=== PATIENT | female | born 1930 | race Caucasian/White ===

== ENCOUNTER 2016-07-08 11:55 | Emergency (ER) | payer MEDICARE, BC ==
[2016-07-08 12:17] VITALS: BP 151/80
[2016-07-08] MEDS ORDERED: ACETAMINOPHEN 325 MG TABLET PO ONE (15:23)
--- NOTE | 2016-07-08 15:23 | ERNOTE ---
Date of Service: 07/08/16 Time Seen by Provider: 07/08/16 15:14 Stated Complaint: UPPER RESPITORY. Presenting Symptoms:: cough, sore throat, runny nose Source: patient, RN notes reviewed, past records Exam Limitations: no limitations Immunizations: IMMUNIZATION HX Immunizations Up to Date Yes History of Influenza Vaccine Yes Hx Pneumococcal Vaccination Yes Allergies/Adverse Reactions: Allergies Sulfa (Sulfonamide Antibiotics) Allergy (Intermediate, Verified 06/30/16 10:21) Hives fish oil Allergy (Intermediate, Uncoded 02/19/16 09:45) Hives Home Medications: HOME MEDICATIONS Bioflav,Lemon/Vit Bcomp,C [Lipoflavovit Caplet] 1 each PO DAILY 05/23/13 [Last Taken Unknown] Calcium Carbonate [Calcium] 500 mg PO DAILY 05/23/13 [Last Taken Unknown] Cyanocobalamin [Vitamin B-12] 1,000 mcg PO DAILY 05/23/13 [Last Taken Unknown] Levothyroxine Sodium [Synthroid] 112 mcg PO DAILY 05/23/13 [Last Taken Unknown] Omeprazole [Prilosec] 40 mg PO DAILY 05/23/13 [Last Taken Unknown] Sennosides [Senna Laxative] 8.6 mg PO DAILY 05/23/13 [Last Taken Unknown] Simvastatin 40 mg PO DAILY 05/23/13 [Last Taken Unknown] Vit A/Vit C/Vit E/Zinc/Copper [Preservision Areds Tablet] 2 each PO DAILY [Last Taken Unknown] Polyethylene Glycol 3350 [Miralax] 17 gm PO DAILY 12/14/15 [Last Taken Unknown] Warfarin Sodium [Coumadin] 5 mg PO DAILY #30 tablet 12/14/15 [Last Taken Unknown ] - History of Present Ilness Narrative: Glenis is a 86 year old female who presents to the ED by private vehicle for upper respiratory symptoms that began on 07/05/16. She reports a runny nose, sore throat and cough. She believes she has had a fever but has not checked. She denies headaches or body aches. She reports that she is starting chemotherapy later this week. She has been taking OTC cough/cold meds. Date (Duration): 07/05/16 Frequency/Possible Cause: Reports: illness exposure Associated Symptoms: Reports: cough, nasal congestion, nasal drainage, sore throat. Denies: chest pain/soreness, shortness of breath, wheezing, facial pain , dizziness, lightheadedness, earache, headache, muscle aches Review of Systems - Review of Systems Constitutional: Present: See HPI EYE: Present: no symptoms reported ENT: Present: See HPI Respiratory: Present: See HPI Cardiology: Present: no symptoms reported Gastrointestinal/Abdominal: Present: See HPI Genitourinary: Present: no symptoms reported Musculoskeletal: Present: See HPI Skin: Present: no symptoms reported Neurological: Present: See HPI Endocrine: Present: no symptoms reported Hematologic/Lymphatic: Present: no symptoms reported Psych: Present: no symptoms reported - Patient's Past Medical History Patient History - Medical: GERD, Renal Disease, UTI'S Patient History - Cardiac/Respiratory: Deep Vein Thrombosis, Pulmonary Embolism Patient History - Cancer: Colon, Other - Fallopian tube Patient History - Surgical Procedures: Cancer Surgery, Cataracts, Colonoscopy, Hysterectomy, Total Knee Replacement, T & A LMP (females 10-50): Menopausal - Family History Mother Family History - Medical: Family History - Cardiac/Respiratory: No pertinent hx Father Family History - Medical: Family History - Cardiac/Respiratory: CVA/Stroke, Myocardial Infarction - Social History Living Situations: home Smoking Status: Former smoker Have you smoked in the past 12 months: No Do you dip or chew tobacco: No Patient requests Smoking Cessation Consult: No Initiate information on Smoking Cessation: No Alcohol Use: none Drug Use: none Physical Exam - Physical Exam General Appearance: Present: wd/wn, alert, no apparent distress, other - noted to be uncomfortable Eye Exam: Normal inspection: bilateral Ears, Nose, Throat: Present: hearing grossly normal, nasal congestion, pharyngeal erythema. Absent: abnormal TM (R), abnormal TM (L), sinus pain/ drainage Neck: Present: normal inspection, nontender, supple Respiratory: Present: no respiratory distress, normal breath sounds, no accessory muscle use, lungs clear Cardiovascular/Chest: Present: regular rate, rhythm, no murmur Neurological Exam: Present: alert, oriented, normal mood/affect Skin Exam: Present: normal color, warm/dry ED Progress - Results and Orders Patient's Lab Results:: I have reviewed the patient's lab results. - Vital Signs Patient's Vital Signs:: I have reviewed the patient's vital signs. Vital Signs: Vital Signs 07/08/16 12:13 Temperature 35.9 C L Pulse Rate 82 Respiratory 14 Rate Blood Pressure 151/80 O2 Sat by Pulse 99 Oximetry - X-Ray X-Ray #1 X-Ray: chest Interpretation: Interp. by me X-ray Comments: No acute cardiopulmonary process noted - Progress/Reassessment Chief Complaint: Upper Respiratory Symptoms Progress:: Unchanged Departure - Departure Clinical Impression: Upper respiratory infection, viral Disposition: Home Follow Up Needed Condition: Fair Instructions: Upper Respiratory Infection, Adult, [id number] Additional Instructions: Drink plenty of water and rest Return or see your doctor if symptoms worsen Continue your routine medications Stop the cough/cold medication - OK to take Tylenol for pain/fever
[2016-07-08] MEDS ORDERED: ACETAMINOPHEN 325 MG TABLET ONE (15:35)
[2016-07-08 15:39] LABS: Hematocrit 39.8 % (37.0-47.0); Hemoglobin 12.3 gm/dL (12.5-16.0); Mean Cell Volume 87.3 fl (78-100); Mean Corpuscular Hgb Conc 30.9 g/dl (32-36); Mean Platelet Volume 10.7 fl (6.0-9.5); Neutrophil # 5.2 K/mm3 (1.3-6.0); Neutrophil % 76.4 % (42-75.0); Platelet Count 192 K/mm3 (150-450); Red Blood Count 4.56 M/mm3 (4.2-5.4); Red Cell Distribution Width 14.4 % (11.5-14.0); White Blood Count 6.8 K/mm3 (4.0-10.5)
[2016-07-08 15:50] LABS: Prothrombin Time (Patient) 21.8 Seconds (9.4-11.4)
[2016-07-08 15:51] LABS: INR 2.1 INR (0.90-1.10)
[2016-07-08 15:53] LABS: Albumin * 3.5 gm/dl (3.4-5.0); Anion Gap 16.1 mmol/L (6.8-13.8); BUN/Creatinine Ratio 15.1 (9.0-21.6); Bilirubin, Total 0.7 mg/dL (0.0-1.1); Ca. Corrected For Albumin 9.1 mg/dL (8.4-10.2); Carbon Dioxide 24.5 mmol/L (24-32.6); Potassium 4.6 mmol/L (3.4-4.6); Total Protein 7.5 gm/dL (6.2-8.2)
== END 2016-07-08 18:10 | disposition home or self-care (01) ==
LOC: ER 11:55
DX: J06.9 Acute upper respiratory infection, unspecified (principal); Z87.891 Personal history of nicotine dependence; Z78.0 Asymptomatic menopausal state; Z90.710 Acquired absence of both cervix and uterus; Z85.038 Personal history of other malignant neoplasm of large intestine; Z85.89 Personal history of malignant neoplasm of other organs and systems

== ENCOUNTER 2016-10-27 14:08 | Emergency (ER) | payer MEDICARE, BC ==
--- OUTSIDE RECORDS SUMMARY | 2016-10-27 14:54 | XMS REPORT | Continuity of Care Document ---
:1930 Author Organization [facility] ([facility]) Address [address] [place] [address] Phone [phone] Care Team Providers Name Role Phone Rg Mccormick Primary Care Provider [phone] Source Comments This disclosure is being made pursuant to the Care Everywhere program, applicable federal and state laws, and may not contain all informaitonavailable regarding this patient.[facility] ([facility]) Active Allergies and Adverse Reactions Allergen Noted Date Severity Reactions Comments Fish Oil 06/15/2010 Rash Sulfa (Sulfonamide Antibiotics) 06/15/2010 Rash Current Medications Prescription Sig. Disp. Refills Start Date End Date Status BIOFLAV,LEMON/VIT Take 1 Tab by Active BCOMP&C (LIPO-FLAVONOID mouth daily. PLUS PO) VIT C/DL-E Take 1 Tab by Active AC/LUT/COPPER/ZNOX mouth 2 times (PRESERVISION PO) daily. simvastatin (ZOCOR) 40 Take 40 mg by Active mg tablet mouth every evening. CA CITRATE/MGOX/VIT Take by mouth Active D3/B6/MIN (CITRACAL PLUS daily. PO) cyanocobalamin (VITAMIN Take 1,000 mcg by Active B-12) 1,000 mcg tablet mouth daily. omeprazole 40 mg enteric Take 40 mg by Active coated capsule mouth daily. polyethylene glycol 3350 Take 17 g by Active 17 gram packet mouth daily. hypromellose (GONIOVISC) 1 Drop 3 times Active 2.5 % ophthalmic daily as needed. solution docusate 100 mg capsule Take 1 Cap by 60 Cap 3 08/25/2014 Active mouth 2 times daily. Indications: CONSTIPATION ibuprofen 400 mg tablet Take 1 Tab by 90 Tab 3 08/25/2014 Active mouth every 6 hours as needed. Indications: PAIN acetaminophen 325 mg Take 2 Tabs by 90 Tab 3 08/25/2014 Active tablet mouth every 4 hours as needed. Indications: PAIN Walker misc 1 Each as needed. 1 Each 0 08/25/2014 Active Indications: generalized weakness, assistance with ambulation. warfarin PO Take 7 mg by Active mouth daily. levothyroxine 125 mcg Take 1 tablet 30 tablet 11 07/19/2016 Active tablet (125 mcg total) by mouth every morning before breakfast. Transparent Dressings 1 application by 50 Each 07/18/2016 Active (TEGADERM) 4 X 4 3/4 " Apply externally bndg route daily. Gauze Bandage 2 X 2 " 1 application by 200 Each 07/18/2016 Active spge Apply externally route daily. ondansetron 8 mg tablet Take 1 tablet (8 12 tablet 08/10/2016 Active mg total) by mouth every 8 hours as needed. PROchlorPERAZINE 10 mg Take 1 tablet (10 30 tablet 08/10/2016 Active tablet mg total) by mouth every 6 hours as needed. lidocaine, viscous 2 % 1 tsp swish and 100 mL 11 10/05/2016 Active solution spit q 2 hours prn mouth sores. Mix with equal parts Maalox and liquid Benadryl methylPREDNISolone 4 mg Take as directed 21 tablet 0 10/25/2016 Active tablet pack according to package instructions. Active Problems Problem Noted Date Chemotherapy management, encounter for 09/13/2016 Evaluated for clinical trial enrollment [id number], unable to enroll elevated 08/10 creat. 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 IV carboplatin with weekly Taxol, cycle #1 given 07/21/10. Macular degeneration 07/25/2010 Diverticulitis 06/15/2010 Hypothyroid 06/15/2010 Hyperlipidemia 06/15/2010 Spastic colon 06/15/2010 Overview: Outside diagnosis Resolved Problems Problem Noted Date Resolved Date Routine cancer follow-up visit 06/27/2016 08/10/2016 FUO (fever of unknown origin) 08/24/2014 01/24/2016 Postoperative nausea 08/23/2014 01/24/2016 Obesity, Class II, BMI 35-39.9 08/23/2014 08/10/2016 Hypophosphatemia 08/23/2014 01/24/2016 Acute blood loss anemia 08/23/2014 08/10/2016 Pleural effusion 06/16/2010 06/14/2015 Rash 06/15/2010 06/14/2015 Most Recent Encounters Date Type Specialty Providers Description 01/18/2017 Hospital Radiology Encounter 10/25/2016 Telephone Cancer Center Ivon Vaughan, Dx: Palmar plantar RN erythrodysesthesia (Primary Dx) 10/22/2016 Telephone Radiology Daniella Agustin Chief Comp: Follow-up Kelly RN 10/19/2016 Telephone Radiology Ashley, Chief Comp: Advice Only MD Maury 10/16/2016 Telephone Radiology Daniella Agustin Chief Comp: Patient L, RN Concern 10/15/2016 Surgery Radiology Anamaria Colunga, IR NEPHROSTOMY TUBE MD CHECK & CHANGE 10/05/2016 [facility] Jacob Edouard Dx: Metastatic Encounter Center MD [place] adenocarcinoma to spleen 10/05/2016 Office Visit OBG Reproductive Jacob Edouard Dx: Cancer of both P, fallopian tubes (Primary Clinic, Light Adjuster Onc Dx) Advanced Practice Provider 10/05/2016 Pharmacy Visit 10/03/2016 Telephone Cancer Center Delores Villatoro, Chief Comp: Results RN 09/28/2016 Office Visit OB Jacob Harley Chief Comp: Patient PMD Reported Reason For Clinic, Light Adjuster Onc Visit Advanced Practice Provider 09/07/2016 [facility] Jacob Edouard Dx: Metastatic Encounter Center MD [place] adenocarcinoma to spleen 09/07/2016 Office Visit OB Jacob Harley Dx: Cancer of both P, MD fallopian tubes (Primary Clinic, Light Adjuster Onc Dx) Advanced Practice Provider 08/10/2016 [facility] Jacob Edouard Dx: Metastatic Encounter Center MD [place] adenocarcinoma to spleen 08/06/2016 Hospital Radiology Subj: Upcoming Appt Encounter Reminder 08/06/2016 Office Visit Pathology Cynthia Forbes Dx: Elevated serum K, RESULTS ENGINEER creatinine Lab Services, Pfp 08/06/2016 Office Visit OBG Jacob Harley Dx: Cancer of both MD [place] fallopian tubes (Primary Clinic, Light Adjuster Onc Dx) Advanced Practice Provider Immunizations Name Dates Previously Given Next Due Influenza, unspecified 04/07/2016,04/19/2014 Pneumococcal Conjugate, PCV13 (Prevnar 13) 09/07/2016 Pneumococcal Polysaccharide, PPSV23 (Pneumovax 23) 06/17/2010 Social History Tobacco Use Types Packs/Day Years Used Date Never Smoker Smokeless Tobacco: Never Used Alcohol Use Drinks/Week oz/Week Comments No Last Filed Vital Signs Vital Sign Reading Time Taken Blood Pressure 123/60 10/15/2016 10:58 AM CDT Pulse 62 10/05/2016 10:39 AM CDT Temperature 36.5 C (97.7 F) 10/15/2016 10:30 AM CDT Respiratory Rate 16 10/05/2016 10:39 AM CDT Height 1.651 m (5' 5") 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 Weight 85.7 kg (188 lb 15 oz) 10/05/2016 9:34 AM CDT Body Mass Index 31.44 10/05/2016 9:34 AM CDT Oxygen Saturation 100% 10/15/2016 10:58 AM CDT Plan of Care Date Type Specialty Providers Description 11/02/2016 Appointment OBG Jacob Harley MD [address] [place] [address] [phone] (Fax) Chief Comp: Clinic, Light Adjuster Onc Advanced Practice Provider Patient Reported Reason For Visit 11/02/2016 Hospital Encounter Cancer Infusion Jacob Edouard, Chief Comp: Dylon COMER Patient Reported [address] [place] [address] [phone] (Fax) 01/18/2017 Surgery Radiology Radiologist, Rad IR NEPHROSTOMY Invasive TUBE CHECK & [address] [place] [address] [phone] (Fax) 06/26/2017 Appointment Heart and Vascular Denzel Carreno Chief Comp: MD Lili Patient Reported [address] [place] [address] [phone] (Fax) Health Maintenance Due Date Last Done Comments Hepatitis B Vaccine (1 of 3 1930 - Primary Series) Tdap Vaccine 1942 Lipid Disorder Screening 1949 Td Vaccine 1949 Colonoscopy 03/03/1981 Zoster Vaccine 1991 Osteoporosis Screening (DXA 1996 Bone Density) Influenza Vaccine: Seasonal Addressed 04/12/2016 (Completed Overridden with the outside this hospital intention of not or clinic), 04/07/2016, completing the topic 04/19/2014 Pneumococcal Vaccine Completed 09/07/2016, 06/17/2010 Results from Last 3 Months IR NEPHROSTOMY TUBE CHECK& CHANGE (10/15/2016 10:26 AM) Impressions IMPRESSION: Successful exchange of existing left external nephrostomy catheters using a 10 F, 35 cm locking pigtail catheter. Nephrostogram showed distal ureteric obstruction. PLAN: Patient to return to IR in 3 months for the same check/change. No flushing. Narrative PROCEDURE: Exchange of existing left external PCN catheter. CLINICAL INDICATIONS:Fallopian tube cancer with ureteral obstruction, status post PCN placement on 07/17/2016. Follow-up exam. Patient complains of minimal leakage. ACCESS:Existing left external PCN catheter. CONTRAST: 40 ml Isovue 370 ANESTHESIA:1% Local lidocaine MEDICATIONS:1 mg Versed IV, 50 mcg Fentanyl IV, 1 g Rocephin IV. PHYSICIANS: Dr. Colunga MASSOTHERAPIST: Dr. Ramirez COMPLICATIONS:None immediate BLOOD LOSS:Minimal FLUORO TIME:1.6 min FLUORO DOSE:15 mGy SEDATION START TIME: 0947 AM SEDATION STOP TIME: 1006 AM TECHNIQUE/FINDINGS:The patient was identified.After the risks and benefits of the procedure were discussed with the Patient, an informed written consent was obtained.The patient was then brought back to interventional suite and placed prone on the table.A time out was performed.The patient was then prepped and draped in the normal sterile fashion.The existing left external nephrostomy tube was prepped in the standard sterile fashion. A vessel liner film was performed to document the location of the existing catheter. A preprocedural nephrostogram was performed. Subsequently, the pericatheter skin was anesthetized using 1 % lidocaine. The catheter was unlocked and unsecured and was exchanged over a Bentson guidewire with another 10 F, 35 cm locking pigtail catheter. The catheter was locked and the pigtail loop was adjusted to lie in the renal pelvis. Post procedure nephrostogram was performed documenting adequate catheter placement and to rule out any immediate complications. Catheter was locked and sutured to the skin using 2.0 Prolene. Nephrostogram findings : Obstruction of the distal ureter in the pelvis. Otherwise, unremarkable collecting system and proximal and mid ureter. The patient tolerated the procedure well. There were no complications. Dr. Colunga performed the entire procedure. Procedure Note Wero, Incoming Imaging Results - Tue Oct 16, 2016 8:22 AM CDT PROCEDURE: Exchange of existing left external PCN catheter. CLINICAL INDICATIONS: Fallopian tube cancer with ureteral obstruction, status post PCN placement on 07/17/2016. Follow-up exam. Patient complains of minimal leakage. ACCESS: Existing left external PCN catheter. CONTRAST: 40 ml Isovue 370 ANESTHESIA: 1% Local lidocaine MEDICATIONS: 1 mg Versed IV, 50 mcg Fentanyl IV, 1 g Rocephin IV. PHYSICIANS: Dr. Colunga MASSOTHERAPIST: Dr. Ramirez COMPLICATIONS: None immediate BLOOD LOSS: Minimal FLUORO TIME: 1.6 min FLUORO DOSE: 15 mGy SEDATION START TIME: 0947 AM SEDATION STOP TIME: 1006 AM TECHNIQUE/FINDINGS: The patient was identified. After the risks and benefits of the procedure were discussed with the Patient, an informed written consent was obtained. The patient was then brought back to interventional suite and placed prone on the table. A time out was performed. The patient was then prepped and draped in the normal sterile fashion. The existing left external nephrostomy tube was prepped in the standard sterile fashion. A vessel liner film was performed to document the location of the existing catheter. A preprocedural nephrostogram was performed. Subsequently, the pericatheter skin was anesthetized using 1 % lidocaine. The catheter was unlocked and unsecured and was exchanged over a Bentson guidewire with another 10 F, 35 cm locking pigtail catheter. The catheter was locked and the pigtail loop was adjusted to lie in the renal pelvis. Post procedure nephrostogram was performed documenting adequate catheter placement and to rule out any immediate complications. Catheter was locked and sutured to the skin using 2.0 Prolene. Nephrostogram findings : Obstruction of the distal ureter in the pelvis. Otherwise, unremarkable collecting system and proximal and mid ureter. The patient tolerated the procedure well. There were no complications. Dr. Colunga performed the entire procedure. IMPRESSION IMPRESSION: Successful exchange of existing left external nephrostomy catheters using a 10 F, 35 cm locking pigtail catheter. Nephrostogram showed distal ureteric obstruction. PLAN: Patient to return to IR in 3 months for the same check/change. No flushing. CANCER ANTIGEN 125 (10/05/2016 11:08 AM)Only the most recent of3 resultswithin the time period is included. Component Value Range CA-125 (Cancer Antigen 125) 383(H) <=34 U/mL Specimen Blood ECG - EKG 12 LEAD (08/06/2016 12:57 PM) Component Value Range ECG SEVERITY - NORMAL ECG - VENT. RATE 69 bpm RR 870 ms P-R INTERVAL 132 ms QRSD INTERVAL 76 ms QT INTERVAL 384 ms QTC INTERVAL 412 ms P AXIS 51 degrees QRS AXIS -17 degrees T WAVE AXIS 53 degrees REPORT SINUS RHYTHM [Remains] NO SIGNIFICANT CHANGE Interpreting Physician: ROBLES YUSUF MD DIFFERENTIAL (08/06/2016 12:33 PM) Component Value Range % Neutrophils-Auto Diff 65.8 % Neutrophils-Auto Diff 3620 6357-0886 /MM3 % Lymphocytes-Auto Diff 20.5 % Lymphocytes-Auto Diff 7558 742-2230 /MM3 % Monocytes-Auto Diff 10.3 % Monocytes-Auto Diff 570 130-860 /MM3 % Eosinophils-Auto Diff 2.5 % Eosinophils-Auto Diff 140 40-390 /MM3 % Basophils 0.5 % Basophils-Auto Diff 30 10-136 /MM3 % Immature Granulocytes-Auto Diff 0.4 % Immature Granulocytes-Auto Diff 20 /MM3 Specimen Whole Blood CBC (COMPLETE BLOOD COUNT) (08/06/2016 12:33 PM) Component Value Range WBC Count 5.5 3.7-10.5 K/MM3 RBC Count 4.24 4.00-5.20 M/MM3 Hemoglobin 11.5(L) 11.9-15.5 g/dL Hematocrit 36 35-47 % MCV (Mean Corpuscular Volume) 86 82-99 FL MCH (Mean Corpuscular Hemoglobin) 27 25-35 PG MCHC (Mean Corpuscular Hemoglobin Concentration) 32 32-36 % Platelet Count 200 150-400 K/MM3 MPV (Mean Platelet Volume) 11.5 9.4-12.3 FL RBC Dist Width-STD 47.0(H) 36.4-46.3 FL RBC Distrib Width 15.1(H) 9.0-14.5 % Nucleated RBC 0 /100 WBC Specimen Whole Blood PROTEIN-URINE,RANDOM (08/06/2016 12:33 PM) Component Value Range Total Protein, Urine, Random 364 mg/dL Protein/Creatinine Ratio 3.64(H) <=0.20 Specimen Urine CREATININE-URINE, RANDOM (08/06/2016 12:33 PM) Component Value Range Creatinine, Urine, Random 100.1 mg/dL Specimen Urine CBC WITH DIFFERENTIAL (08/06/2016 12:33 PM) Specimen Whole Blood Narrative The following orders were created for panel order CBC WITH DIFFERENTIAL. Procedure Abnormality Status --------- ------ CBC (COMPLETE BLOOD COUNT)[[id number]] AbnormalFinal result DIFFERENTIAL[[id number]] Final result Please view results for these tests on the individual orders. THYROID STIMULATING HORMONE (08/06/2016 12:33 PM) Component Value Range TSH 1.13 0.27-4.20 IU/mL Specimen Blood TOTAL PROTEIN (08/06/2016 12:33 PM) Component Value Range Total Protein 6.8 6.0-8.0 g/dL Specimen Blood BILIRUBIN, TOTAL (08/06/2016 12:33 PM) Component Value Range Bilirubin Total 0.4 <=1.2 mg/dL Specimen Blood ALKALINE PHOSPHATASE (08/06/2016 12:33 PM) Component Value Range ALP 72 35-104 U/L Specimen Blood ALANINE AMINOTRANSFERASE (08/06/2016 12:33 PM) Component Value Range ALT 14Comment: 0-33 U/L The upper limit of normal for alanine aminotransferase (ALT) reference ranges for adults is controversial with some authorities recommending limit as low as 30 U/L for males and 19 U/L for females. Th ere is increased incidence of subclinical liver disease (e.g., early steatohepatitis) in patients with ALT values in the range of 31-41 U/L for males and 20-33 U/L for females. ALT values should alway s be interpreted in conjunction with clinical history, physical examination findings, and, if applicable, data from other diagnostic tests. Specimen Blood ASPARTATE AMINOTRANSFERASE (08/06/2016 12:33 PM) Component Value Range AST 21Comment: 0-32 U/L Adult reference ranges updated on 06/02/13 at 830am Specimen Blood CALCIUM (08/06/2016 12:33 PM) Component Value Range Calcium 8.9 8.5-10.5 mg/dL Specimen Blood ALBUMIN (08/06/2016 12:33 PM) Component Value Range Albumin 3.8 3.4-4.8 g/dL Specimen Blood GLUCOSE (08/06/2016 12:33 PM) Component Value Range Glucose 106(H)Comment: 65-99 mg/dL The Expert Committee on the Diagnosis and Classification of Diabetes has defined impaired fasting glucose as greater than or equal to 100 mg/dL but less than 126 mg/dL.(Diabetes Care 28 (Suppl 1)S41,2005) Specimen Blood CREATININE (08/06/2016 12:33 PM) Component Value Range Creatinine 1.1(H)Comment: 0.5-1.0 mg/dL Creatinine switched to enzymatic method on 11/14/2010.GFR equation switched to IDMS-traceable MDRD equation on 11/14/2010. Calculated GFR values are not valid in clinical settings where serum creatinine is changing. Calculated GFR 47(L) >60 mL/min/1.73 m2 Specimen Blood BLOOD UREA NITROGEN (08/06/2016 12:33 PM) Component Value Range BUN 20 10-20 mg/dL Specimen Blood CO2 (08/06/2016 12:33 PM) Component Value Range CO2 24 22-29 mEq/L Anion Gap 14 8-18 mEq/L Specimen Blood CHLORIDE (08/06/2016 12:33 PM) Component Value Range Chloride 101 95-107 mEq/L Specimen Blood POTASSIUM (08/06/2016 12:33 PM) Component Value Range Potassium 4.6 3.5-5.0 mEq/L Specimen Blood SODIUM (08/06/2016 12:33 PM) Component Value Range Sodium 139 135-145 mEq/L Specimen Blood
[2016-10-27 15:18] LABS: Hematocrit 29.1 % (37.0-47.0); Hemoglobin 9.1 gm/dL (12.5-16.0); Mean Cell Volume 87.1 fl (78-100); Mean Corpuscular Hemoglobin 27.2 pg (27-31); Mean Corpuscular Hgb Conc 31.3 g/dl (32-36); Mean Platelet Volume 10.8 fl (6.0-9.5); Neutrophil # 5.8 K/mm3 (1.3-6.0); Neutrophil % 85.6 % (42-75.0); Platelet Count 326 K/mm3 (150-450); Red Blood Count 3.34 M/mm3 (4.2-5.4); Red Cell Distribution Width 14.6 % (11.5-14.0); White Blood Count 6.8 K/mm3 (4.0-10.5)
[2016-10-27 15:31] LABS: Anion Gap 12.5 mmol/L (6.8-13.8); BUN/Creatinine Ratio 17.7 (9.0-21.6); Bilirubin, Total 0.4 mg/dL (0.0-1.1); Calcium * 8.9 mg/dL (7.9-10.9); Carbon Dioxide 27.7 mmol/L (24-32.6); Estimated Creat Clear 26.2; Potassium 4.2 mmol/L (3.4-4.6)
[2016-10-27 15:34] LABS: Prothrombin Time (Patient) 50.3 Seconds (9.4-11.4)
[2016-10-27 15:47] LABS: INR 4.84 INR (0.90-1.10)
[2016-10-27 15:48] LABS: Urine Appearance Cloudy; Urine Color Amber
[2016-10-27 15:52] LABS: Urine Bilirubin Negative (NEGATIVE); Urine Blood 250 /ul (NEGATIVE); Urine Ketone 5 mg/dL (NEGATIVE)
[2016-10-27 15:53] LABS: Urine Bacteria 1+; Urine Nitrite Positive (NEGATIVE); Urine Protein >=300 mg/dL (NEGATIVE); Urine RBC >50 /hpf (0-5); Urine Urobilinogen Normal (NORMAL); Urine WBC >50 /hpf (0-5); Urine pH 6.5 pH (5.0-7.0)
[2016-10-27 16:06] LABS: Urine Appearance Slightly Cloudy; Urine Bilirubin Negative (NEGATIVE); Urine Blood Negative /ul (NEGATIVE); Urine Color Yellow; Urine Ketone Negative (NEGATIVE); Urine Protein 30 mg/dL (NEGATIVE); Urine Urobilinogen Normal (NORMAL); Urine pH 5.5 pH (5.0-7.0)
[2016-10-27 16:07] LABS: Urine Bacteria 2+; Urine Nitrite Negative (NEGATIVE); Urine RBC None Seen /hpf (0-5)
[2016-10-27] MEDS ORDERED: KETOROLAC TROMETHAMINE 30 MG/ML VIAL IV ONE (16:51)
--- NOTE | 2016-10-27 16:53 | ERNOTE ---
Medical Problem HPI - Narrative Date of Service: 10/27/16 - General Chief Complaint: Fever Time Seen by Provider: 10/27/16 14:44 Source: patient, family Exam Limitations: no limitations - Immun/Allergies/Home Medications Immunizations: IMMUNIZATION HX Immunizations Up to Date Yes History of Influenza Vaccine Yes Hx Pneumococcal Vaccination Yes Allergies/Adverse Reactions: Allergies Sulfa (Sulfonamide Antibiotics) Allergy (Intermediate, Verified 06/30/16 10:21) Hives fish oil Allergy (Intermediate, Uncoded 02/19/16 09:45) Hives Home Medications: HOME MEDICATIONS Bioflav,Lemon/Vit Bcomp,C [Lipoflavovit Caplet] 1 each PO DAILY 05/23/13 [Last Taken Unknown] Cyanocobalamin [Vitamin B-12] 1,000 mcg PO DAILY 05/23/13 [Last Taken Unknown] Levothyroxine Sodium [Synthroid] 125 mcg PO DAILY 05/23/13 [Last Taken Unknown] Omeprazole [Prilosec] 40 mg PO DAILY 05/23/13 [Last Taken Unknown] Simvastatin 40 mg PO DAILY 05/23/13 [Last Taken Unknown] Vit A/Vit C/Vit E/Zinc/Copper [Preservision Areds Tablet] 2 each PO DAILY [Last Taken Unknown] Polyethylene Glycol 3350 [Miralax] 17 gm PO DAILY 12/14/15 [Last Taken Unknown] Acetaminophen [Tylenol] 650 mg PO Q6H PRN 10/27/16 [Last Taken Unknown] Calcium Citrate/Vitamin D3 [Citracal + D Maximum Caplet] 1 each PO DAILY [Last Taken Unknown] Docusate Sodium [Colace] 100 mg PO BID 10/27/16 [Last Taken Unknown] Hypromellose [Goniosol] 15 ml OP TID 10/27/16 [Last Taken Unknown] Ibuprofen [Motrin] 400 mg PO Q6H PRN 10/27/16 [Last Taken Unknown] Lidocaine HCl [Lidocaine HCl Viscous 2%] 1 tsp MM Q2H PRN 10/27/16 [Last Taken Unknown] Methylprednisolone [Medrol Dosepak] 4 mg PO QID 10/27/16 [Last Taken Unknown] Ondansetron HCl [Zofran] 8 mg PO Q8H PRN 10/27/16 [Last Taken Unknown] Prochlorperazine Maleate [Compazine] 10 mg PO QID PRN 10/27/16 [Last Taken Unknown] Warfarin Sodium [Coumadin] 7 mg PO DAILY 10/27/16 [Last Taken Unknown] - History of Present History Narrative: Patient comes due to fever and L flank pain. Patient is an oncology patient been follow up at [facility] who was replaced the L nephrostomy tube on 10/11/2016. Patient reported that she had fever after procedure and Tx was given to her, but fever has continue. The fever is on a cyclic like pattern. Now patient is feeling weak Timing: intermittent Severity: moderate Modifying Factors - (Improves): Present: other - nothing Modifying Factors - (Worsens): Present: other - nothing Review of Systems - Review of Systems Constitutional: Present: fever, chills, weakness, malaise EYE: Present: no symptoms reported ENT: Present: no symptoms reported Respiratory: Present: no symptoms reported Cardiology: Present: no symptoms reported Gastrointestinal/Abdominal: Present: nausea. Absent: vomiting, diarrhea, constipation, abdominal pain Genitourinary: Present: frequency, dysuria. Absent: hematuria Musculoskeletal: Present: no symptoms reported Skin: Present: no symptoms reported Neurological: Present: no symptoms reported Endocrine: Present: no symptoms reported Hematologic/Lymphatic: Present: no symptoms reported Psych: Present: no symptoms reported All Other Systems: All systems neg except as marked - Patient's Past Medical History Patient History - Medical: GERD, Renal Disease, UTI'S Patient History - Cardiac/Respiratory: No pertinent hx Patient History - Cancer: Colon, Ovarian, Other Patient History - Surgical Procedures: Cancer Surgery, Cataracts, Colonoscopy, Hysterectomy, Total Knee Replacement, T & A Patient History - Other: None - Family History Mother Family History - Medical: Family History - Cardiac/Respiratory: No pertinent hx Father Family History - Medical: Family History - Cardiac/Respiratory: CVA/Stroke, Myocardial Infarction - Social History Living Situations: home Abuse History: No History of abuse Psych History: No pertinent hx Smoking Status: Never smoker Alcohol Use: none Drug Use: none - Immunizations Immunizations Up to Date: Yes Hx Pneumococcal Vaccination: Yes History of Influenza Vaccine: Yes Physical Exam - Physical Exam General Appearance: Present: wd/wn, alert, no apparent distress Eye Exam: Normal inspection: bilateral Ears, Nose, Throat: Present: normal ENT inspection Neck: Present: normal inspection, nontender Respiratory: Present: no respiratory distress, normal breath sounds, no accessory muscle use, chest nontender, lungs clear Cardiovascular/Chest: Present: regular rate, rhythm, no murmur, normal peripheral pulses Gastrointestinal/Abdominal: Present: normal bowel sounds, nontender, nondistended, soft, no organomegaly Back Exam: Present: normal range of motion, no vertebral tenderness, CVA tenderness (L). Absent: vertebral tenderness Extremity Exam: Present: normal inspection, non-tender, normal range of motion, no edema Neurological Exam: Present: alert, oriented, normal mood/affect, no motor/ sensory deficits Skin Exam: Present: normal color, warm/dry Lymphatic Exam: Present: no adenopathy ED Progress - Date and Time Seen: Date and Time: 10/27/16 16:49 Patient with a Tx condition that failed Tx and will need oncology urology evaluation. Patient's last procedure was done at [facility] on 2016 and since then has been with fever on and off. Patient was found with UTI. Patient case has been presented to Dr. Trejo who accepted patient in transfer. Patient has been made aware of findings. - Results and Orders Patient's Lab Results:: I have reviewed the patient's lab results. Results and Orders: CBC: WNL CMP: Elevated Creat UA: Positive INR: 4.8 - Vital Signs Patient's Vital Signs:: I have reviewed the patient's vital signs. Vital Signs: Vital Signs 10/27/16 10/27/16 10/27/16 14:28 14:42 15:44 Temperature 37.7 C H 36.4 C L Pulse Rate 92 78 80 Respiratory 18 20 18 Rate Blood Pressure 150/75 154/53 158/42 O2 Sat by Pulse 99 99 99 Oximetry 10/27/16 16:15 Temperature 38.2 C H Pulse Rate 85 Respiratory 16 Rate Blood Pressure 138/74 O2 Sat by Pulse 97 Oximetry - X-Ray X-Ray #1 X-Ray: chest X-ray Comments: No acute cardiopulmonary process reported by Radiologist. - CT/Ultrasound CT/Ultrasound Narrative: CT: Report was noticed. Patient with L perinephric stranding - Progress/Reassessment Chief Complaint: Fever Progress:: Unchanged - Transfer of Care Expected Disposition: Transfer Plan - Plan Plan: Transfer to facility with urology oncology service. Departure - Departure Clinical Impression: Pyelonephritis Fever Qualifiers: Fever type: unspecified Qualified Code(s): R50.9 - Fever, unspecified UTI (urinary tract infection) Qualifiers: Urinary tract infection type: site unspecified Hematuria presence: without hematuria Qualified Code(s): N39.0 - Urinary tract infection, site not specified Disposition: [facility] Referrals: Rg Mccormick DO [Primary Care Provider] -
[2016-10-27] MEDS ORDERED: KETOROLAC TROMETHAMINE 30 MG/ML VIAL ONE (16:54)
[2016-10-27 18:00] VITALS: BP 134/57
== END 2016-10-27 18:00 | disposition short-term general hospital (02) ==
LOC: ER 14:08
DX: N12 Tubulo-interstitial nephritis, not specified as acute or chronic (principal); R50.9 Fever, unspecified; N39.0 Urinary tract infection, site not specified; Z85.038 Personal history of other malignant neoplasm of large intestine; Z85.43 Personal history of malignant neoplasm of ovary; Z87.440 Personal history of urinary (tract) infections; K21.9 Gastro-esophageal reflux disease without esophagitis; Z79.01 Long term (current) use of anticoagulants